=== PATIENT | female | born 1960 | race American Indian/Alaskan Native ===

== ENCOUNTER 2017-03-28 07:23 | Day surgery (SDC) | payer OTHER ==
[2017-03-28 07:59] VITALS: TEMP 97.1
[2017-03-28] MEDS ORDERED: Propofol 10 mg/ml Inj (20 ML) ONE (09:22)
--- NOTE | 2017-03-28 09:29 | CP.SDSHP ---
Same Day Surgery H & P - History Proposed Procedure: screening colonoscopy Pre-Op Diagnosis: screening for colon cancer - Previous Medical/Surgical History Cardiac: Hypertension Endocrine/Metabolic: Diabetes, Obesity Neuro: Backaches Previous Surgical History: cholecystectomy. GABRIELLE/BSO. Left and Right ankle fractures - Allergies Allergies: Allergies No Known Allergies Allergy (Verified 03/28/17 07:56) - Physical Exam Vital Signs: Vital Signs 03/28/17 07:45 Temperature 97.1 F L Pulse Rate 71 Respiratory 19 Rate Blood Pressure 118/61 O2 Sat by Pulse 99 Oximetry Mental Status: Alert & Oriented x3 Neuro: WNL Heart: WNL Lungs: WNL GI: WNL - Impression Impression: screening for colon cancer Pt. Evaluated Today:Candidate for Anesthesia & Procedure: Yes - Date & Time Date: 03/28/17 Time: 09:29 Short Stay Discharge - Short Stay Discharge Admitting Diagnosis/Reason for Visit: SCREENING Disposition: HOME/ ROUTINE
[2017-03-28 09:39] VITALS: O2SAT 100
[2017-03-28 10:50] VITALS: RESP 15
[2017-03-28 11:30] VITALS: BP 117/73; PULSE 59
== END 2017-03-28 11:20 | disposition home or self-care (01) ==
LOC: C.ENDO 07:23
PROVIDERS: ATTEND Internal Medicine Gastroenterology
DX: Z12.11 Encounter for screening for malignant neoplasm of colon (principal); K57.30 Diverticulosis of large intestine without perforation or abscess without bleeding; K64.1 Second degree hemorrhoids; E11.9 Type 2 diabetes mellitus without complications; E66.9 Obesity, unspecified; I10 Essential (primary) hypertension; Z68.28 Body mass index [BMI] 28.0-28.9, adult
CPT/HCPCS: 45378; 82948; J2704